=== PATIENT | female | born 1995 | race Caucasian/White ===

== ENCOUNTER 2019-03-11 08:59 | Inpatient (IN) ==
[2019-03-12] MEDS ORDERED: OXYTOCIN 30 UNITS/500 ML BAG IV PRN ×2 (08:39→08:43)
[2019-03-12 09:12] LABS: Hematocrit (blood only) 36.1 % (37-47); Hemoglobin 12.4 g/dL (12.0-16.0); Mean Corpuscular Hemoglobin 29.5 pg (25-34); Platelet Count 187 K/uL (130-400); RDW Standard Deviation 43.6 fL (36.4-46.3); White Blood Count 11.88 K/uL (4.8-10.8)
[2019-03-12 09:14] LABS: Mean Corpuscular Hgb Conc 34.3 g/dL (32-36)
--- NOTE | 2019-03-12 09:26 | History & Physical Report ---
Date of Service March 12, 2019 Assessment & Plan (1) : 24-year-old G1 @ 38 weeks 0 days here for induction of labor, 1) IOL - was previously breech but currently head down assessed via ultrasound this AM - continue to monitor position - Lisa placed one night prior, fell out - SVE: 3cm, soft, mid - no LOF, no bleeding - O+, Rubella immune, RPR NR, G/C none, GBS negative - plan: father would like to cut the cord, she would like to have an epidural 2) HTN - currently: 143/77 - taking Methyldopa - continue to monitor blood pressure - urine negative for protein - no headaches, vision changes, and RUQ pain 3) Fetus - good movement (2) Obesity during : (3) Hypertension: History of Present Illness Primary Care Provider: Self, Referred Ms. Foster is here for IOL. Lisa was placed last night and over the night it fell out along with a moderate amount of whitish clear mucus. There was not any fluid with the mucus, and there has not been any fluid from that point. She had some blood that was with the mucus but none after that. PMHx.: Anxiety, HTN - Patient was diagnosed with hypertension when she became , but stated that it was elevated prior to this. Taking Methyldopa. Surgical Hx.: Tonsillectomy, Adenoidectomy Social Hx.: lives with partner Caleb at home w/o any pets Pertinent family Hx.: no known complications with in her family, no known congenital anomalies Allergies Allergy/AdvReac Type Severity Reaction Status Date / Time diphenhydramine AdvReac Intermediate Shakiness Verified 03/11/19 14:06 [From Benadryl] Home Medications Home Medications Medication Instructions Recorded Confirmed Type buspirone 7.5 mg tablet 7.5 mg PO BID tab 01/01/19 03/12/19 History methyldopa 250 mg tablet 250 mg PO TID tab 01/01/19 03/12/19 History 1 tab PO DAILY 01/01/19 03/12/19 History vitamin,calcium,rddiwjzq-rwnn-jfskk acid tablet aspirin 81 mg PO QPM 01/15/19 03/12/19 History Patient History Social History Preferred Language: Lebanese Communication Ability: Effective Biology Internship Required: No Beliefs That Will Affect Care: None marital status: Current Living Situation: Spouse Other Information That Helps Us Care for You: No Feels Safe at Home: Yes Safety Concerns: Feels Safe At This Time Smoking Status: Never smoker Do You Dip or Chew Tobacco: No ; Second Hand Exposure: No ; Hx Alcohol Use: No Hx Substance Use: No Review of Systems Denies fever, chills, sweats Denies shortness of breath, difficulty breathing, chest pain, palpitations, chest pressure. Denies breast pain. Denies dysuria. Denies headache, vision changes, RUQ pain Physical Exam Physical Exam: General: Alert, oriented. No acute distress. Cardiac: Regular rate and rhythm, no murmurs/rubs/gallops. Respiratory: Clear to auscultation anterior and posteriorly, no wheezes/rales/rhonchi. No increased work of breathing. Symmetrical chest rise. No respiratory distress. Abdomen: Soft, nontender, nondistended. Bowel sounds present. Fetus: Vertex, head down Lower Extremities: No lower extremity edema or swelling. No deep calf pain. Dae's negative bilaterally. Results & Data Vital Signs (Past 12 Hours) Vital Signs Temp Pulse Resp BP 03/12/19 08:23 37.0 C 100 H 20 143/77 H 03/12/19 07:58 37.0 C 20 03/12/19 07:57 100 H 143/77 H H&H: 12.4 & 36.1 GBS: neg. Urine: neg. ECHO: structurally normal, mild R heart dilation, normal biventricular systolic function, no effusion RPR: NR G/C: neg Hep Bs Antigen: neg HIV: neg Rubella: immune Code Status & VTE Plan Code Status Full Monitoring External Monitor - normal FHT - no late decelerations present and no variable decelerations - Category 1 Tocodynamometer - no contractions present Supervising Physician Co-Signing Physician Notes Resident Physician Supervision Note: I interviewed and examined the patient. Discussed with Dr. Drew and agree with findings and plan as documented in the note. Any exceptions or clarifications are listed here: IOL, pitocin, ok for epidural when she desires. Documented By: Carrol Ellis DO Resident Activity Tracking Resident Involvement: Resident Care Provided Care Provided: Adult [facility]
[2019-03-12 09:32] LABS: Albumin Level 2.5 gm/dl (3.4-5.0); Calcium 8.8 mg/dl (8.5-10.1); Creatinine Clr Calc Pharmacy 146.5 ml/min; Est GFR (Non-African American) 124.3; Potassium 3.6 mmol/L (3.5-5.1)
[2019-03-12 09:35] LABS: Albumin Globulin Ratio 0.7 (0.9-2); Bilirubin,Total 0.3 mg/dl (0.2-1); Globulin 3.7 gm/dl (2.5-4.0); Total Protein 6.2 gm/dl (6.4-8.2)
[2019-03-12] MEDS: LACTATED RINGER'S 1,000 ML IV PRN ×3 (09:55→21:53)
--- NOTE | 2019-03-12 20:09 | Obstetrical Progress Note ---
Date of Service March 12, 2019 Subjective Comfortable with contractions, does not desire epidural at this time. FHT Cat 1 [place] Q 2 SVE 4/50/-2 AROM for clear fluid. IUPC placed. Results & Data Vital Signs (Past 12 Hours) Vital Signs Temp Pulse Resp BP 03/12/19 19:11 101 H 140/75 03/12/19 19:05 37.2 C 106 H 16 140/77 03/12/19 18:11 100 H 134/69 03/12/19 17:12 104 H 127/74 03/12/19 16:12 101 H 138/72 03/12/19 15:11 95 H 145/73 H 03/12/19 14:11 36.9 C 93 H 20 143/76 H 03/12/19 13:12 95 H 20 137/78 03/12/19 12:12 100 H 20 136/71 03/12/19 11:33 36.9 C 20 03/12/19 11:01 95 H 125/70 03/12/19 10:46 96 H 20 120/66 03/12/19 10:41 100 H 124/74 03/12/19 10:31 100 H 22 124/74 03/12/19 10:16 93 H 126/64 03/12/19 10:14 99 H 129/63 03/12/19 10:01 99 H 170/86 H 03/12/19 08:23 37.0 C 100 H 20 143/77 H PG Care Time/CCT Total # of Minutes Spent Total Time Spent with Patient: Total time spent is greater than 50% in coordination of care (as documented) at patient's floor/unit and/or counseling patient:
[2019-03-12] MEDS: METHYLDOPA 250 MG TAB PO SCH (21:08)
[2019-03-12] MEDS ORDERED: ePHEDrine sulfate 50 MG/ML AMP ONE (21:21)
[2019-03-12] MEDS ORDERED: BUPIVACAINE 0.25% 30 ML VIAL ONE (21:21)
[2019-03-12] MEDS ORDERED: fentaNYL citrate 100 MCG/2 ML VIAL ONE (21:22)
[2019-03-12] MEDS ORDERED: fentaNYL 2MCG/ML ROPIV 1.25MG/ML 100 ML BAG EPI ONE (21:22)
[2019-03-12] MEDS ORDERED: NALBUPHINE HCL INJ 10 MG/ML AMP IV PRN (22:29)
[2019-03-12] MEDS ORDERED: NALOXONE HCL 1 MG in SODIUM CHLORIDE 0.9% 1000ML 1,000 ML IV PRN (22:29)
[2019-03-12] MEDS ORDERED: DiphenhydrAMINE HCL 50 MG/ML VIAL IV PRN (22:29)
[2019-03-12] MEDS ORDERED: PROMETHAZINE HCL 25 MG in SODIUM CHLORIDE 0.9% 50 ML IV PRN (22:29)
[2019-03-12] MEDS ORDERED: ePHEDrine sulfate 50 MG/ML AMP IV PRN (22:29)
[2019-03-12] MEDS ORDERED: fentaNYL 2MCG/ML ROPIV 1.25MG/ML 100 ML BAG EPI PRN (22:29)
[2019-03-12] MEDS ORDERED: NALOXONE HCL 0.4 MG/1 ML VIAL/CARP IV PRN (22:29)
[2019-03-12] MEDS ORDERED: ONDANSETRON INJ 2 MG/ML 2 ML VIAL IV PRN (22:29)
--- NOTE | 2019-03-12 22:29 | Anesthesiology Consultation ---
Date of Service March 12, 2019 Assessment & Plan Chart Review Chart Review: Acceptable Risk for Surgery, Patient NOT seen in Pre Admission Testing and Acceptable Risk for Labor Epidural Consults Requested none ASA ASA3 Proposed Anesthesia Anesthesia Type: Labor Epidural Risk / Benefits Reviewed With: PT / POA / Parent / Guardian, Accepts Plan and In formed Consent Obtained History Height/Weight Height: 4 ft 10 in Weight: 112.491 kg Allergies Allergy/AdvReac Type Severity Reaction Status Date / Time diphenhydramine AdvReac Intermediate Shakiness Verified 03/11/19 14:06 [From [place]] Medications Home Medications Medication Instructions Recorded Confirmed Last Taken buspirone 7.5 mg tablet 7.5 mg PO BID tab 01/01/19 03/12/19 03/11/19 23:00 methyldopa 250 mg tablet 250 mg PO TID tab 01/01/19 03/12/19 03/11/19 23:00 1 tab PO DAILY 01/01/19 03/12/19 03/11/19 08:00 vitamin,calcium,lcbtblja-bamh-ddhvy acid tablet aspirin 81 mg PO QPM 01/15/19 03/12/19 03/11/19 23:00 Active Medications Generic Name Dose Route Start Last Admin Trade Name Freq PRN Reason Stop Dose Admin Lactated Ringer's 1,000 mls @ 125 mls/hr 03/12/19 08:39 03/12/19 21:53 Lr IV 03/14/19 08:38 125 mls/hr .Q8H PRN Administration L&D Protocol Protocol Oxytocin 30 units in 500 mls @ 10 mls/hr 03/12/19 08:43 03/12/19 21:46 Pitocin IV 03/14/19 08:42 0.6 units/hr .Q24H PRN 10 mls/hr Labor Induction/Augmentation Titration Protocol 0.6 UNITS/HR Methyldopa 250 mg 03/12/19 21:00 03/12/19 21:08 Aldomet PO 04/11/19 20:59 250 mg TID BATSHEVA Administration NPO Date Last Intake of Fluids: 03/12/19 Time Last Intake of Fluids: 18:00 Date Last Intake of Solids: 03/12/19 Time Last Intake of Solids: 10:30 Past Medical History Medical History Anxiety with depression History of chronic constipation History of varicella Hypertension Exercise / Class Metabolic Activity III < 4 Walking/Shop/Light housework Past Family History Family History Mother Hypertension Father Hypertension Other Diabetes Past Surgical History Surgical History History of tonsillectomy and adenoidectomy Past Anesthesia History No Hx of Anesthesia Complications and No Family Hx of Anesthesia Complications History of PONV No Hx of PONV and No Hx of Motion Sickness Social History Smoking Status: Never smoker Do You Dip or Chew Tobacco: No Hx Alcohol Use: No Hx Substance Use: No substance use type: does not use Physical Exam Vital Signs Last Vital Signs Temp 36.9 C 03/12/19 21:34 Pulse 74 03/12/19 22:25 Resp 16 03/12/19 22:16 BP 96/51 L 03/12/19 22:25 Pulse Ox 98 03/12/19 22:24 Constitutional + morbidly obese ENMT Mouth: + small oral opening; no dentition abnormality Thyromental Distance: < 3.5 Finger Breadths Mallampati Class: III Neck normal visual inspection, trachea midline, + short neck and + thick neck; neck extension not limited Respiratory normal respiratory effort Auscultation: lungs clear to auscultation bilaterally Cardiovascular Rate/Rhythm: regular rate and regular rhythm Heart Sounds: no murmur Musculoskeletal Spine: normal cervical ROM and + lumbar spine abnormal to inspection Neurologic moves all extremities Motor/Sensory: no sensory deficit Psychiatric Orientation: alert and oriented x 3 Testing Laboratory Results 03/12/19 09:01 03/12/19 09:01
--- NOTE | 2019-03-13 03:27 | Obstetrical Progress Note ---
Date of Service March 13, 2019 Subjective Patient sleeping in room. Not feeling ctx. FHT Cat 1 toco Q 2 min [address] is in [address]; MVU range between 150-200. SVE 4-5/70/-2 to -3 Results & Data Vital Signs (Past 12 Hours) Vital Signs Temp Pulse Resp BP Pulse Ox 03/13/19 03:19 95 H 99 03/13/19 03:14 117 H 125/60 99 03/13/19 03:09 105 H 98 03/13/19 03:04 96 H 98 03/13/19 02:59 96 H 100 03/13/19 02:58 96 H 129/71 03/13/19 02:54 95 H 99 03/13/19 02:49 96 H 100 03/13/19 02:47 36.9 C 18 03/13/19 02:44 83 97 03/13/19 02:42 89 108/55 L 03/13/19 02:39 78 96 03/13/19 02:34 75 96 03/13/19 02:29 80 16 110/52 L 97 03/13/19 02:24 83 96 03/13/19 02:19 73 96 03/13/19 02:14 76 97 03/13/19 02:12 88 110/55 L 03/13/19 02:09 81 96 03/13/19 02:04 84 97 03/13/19 01:59 97 H 99 03/13/19 01:58 80 105/63 03/13/19 01:54 81 96 03/13/19 01:49 76 97 03/13/19 01:44 103 H 97 03/13/19 01:43 92 H 16 104/53 L 03/13/19 01:39 83 97 03/13/19 01:34 79 97 03/13/19 01:29 77 97 03/13/19 01:27 91 H 116/58 L 03/13/19 01:24 85 96 03/13/19 01:19 72 96 03/13/19 01:14 84 97 03/13/19 01:12 92 H 114/57 L 03/13/19 01:09 94 H 99 03/13/19 01:04 97 H 98 03/13/19 01:00 37.0 C 16 03/13/19 00:59 86 97 03/13/19 00:58 87 112/55 L 03/13/19 00:54 77 96 03/13/19 00:49 94 H 97 03/13/19 00:44 82 96 03/13/19 00:42 95 H 103/55 L 03/13/19 00:39 79 96 03/13/19 00:34 80 97 03/13/19 00:29 84 96 03/13/19 00:28 90 102/52 L 03/13/19 00:24 75 95 03/13/19 00:19 85 97 03/13/19 00:16 79 94 03/13/19 00:14 85 104/53 L 95 03/13/19 00:09 83 95 03/13/19 00:04 79 94 03/12/19 23:59 83 95 03/12/19 23:58 88 113/52 L 03/12/19 23:54 86 95 03/12/19 23:49 84 95 03/12/19 23:44 82 95 03/12/19 23:43 84 103/53 L 03/12/19 23:39 79 96 03/12/19 23:34 82 96 03/12/19 23:29 83 97 03/12/19 23:28 93 H 16 117/58 L 03/12/19 23:24 80 99 03/12/19 23:19 81 99 03/12/19 23:14 83 16 116/56 L 99 03/12/19 23:09 97 H 100 03/12/19 23:07 36.8 C 16 03/12/19 23:04 98 H 100 03/12/19 23:00 104 H 133/95 03/12/19 22:59 103 H 100 03/12/19 22:56 106 H 18 137/83 03/12/19 22:54 92 H 99 03/12/19 22:52 93 H 120/58 L 03/12/19 22:49 95 H 116/53 L 100 03/12/19 22:46 79 115/57 L 03/12/19 22:44 103 H 100 03/12/19 22:43 102 H 140/82 03/12/19 22:40 87 16 114/57 L 03/12/19 22:39 85 100 03/12/19 22:38 106 H 92 03/12/19 22:37 104 H 16 106/58 L 03/12/19 22:34 96 H 16 107/57 L 100 03/12/19 22:31 86 16 105/59 L 03/12/19 22:29 95 H 98 03/12/19 22:28 88 16 102/54 L 03/12/19 22:25 74 96/51 L 03/12/19 22:24 84 98 03/12/19 22:22 97 H 102/53 L 03/12/19 22:19 100 H 104/54 L 99 03/12/19 22:16 101 H 16 110/58 L 03/12/19 22:14 119 H 97 03/12/19 22:12 110 H 132/77 03/12/19 22:09 106 H 98 03/12/19 22:04 110 H 100 03/12/19 21:59 115 H 98 03/12/19 21:54 112 H 96 03/12/19 21:49 109 H 97 03/12/19 21:44 107 H 97 03/12/19 21:39 106 H 98 03/12/19 21:34 36.9 C 107 H 18 97 03/12/19 21:29 106 H 98 03/12/19 21:24 109 H 98 03/12/19 21:12 107 H 135/69 03/12/19 20:13 91 H 134/61 03/12/19 20:07 37.2 C 18 03/12/19 19:11 101 H 140/75 03/12/19 19:05 37.2 C 106 H 16 140/77 03/12/19 18:11 100 H 134/69 03/12/19 17:12 104 H 127/74 03/12/19 16:12 101 H 138/72 PG Care Time/CCT Total # of Minutes Spent Total Time Spent with Patient: Total time spent is greater than 50% in coordination of care (as documented) at patient's floor/unit and/or counseling patient:
[2019-03-13] MEDS: LACTATED RINGER'S 1,000 ML IV PRN ×2 (04:48→09:00)
--- NOTE | 2019-03-13 07:36 | Labor Progress Brief Note ---
Date of Service March 13, 2019 Subjective comfortable Assessment & Plan (1) Obesity during : (2) Chronic hypertension affecting : Long discussion about options. Pateint has made NO change since 6pm last night when I was here. ruptured for about 12 hours. However, MVUS are not adequate. Baby very high. Patient not 5 foot tall. Concern for cpd. discussed pro/cons of options of proceeding with increasing pit to get more consistently adequate contractions or proceeding with c/s. They are considering options. IN meantime, will increase pit max to 30. Physical Exam Constitutional: WD/WN, vitals as above Psychiatric: A+Ox3, euthymic affect Genitourinary: cx--4 (at most)/75/-3 toco--q 2-3min, pit at 20, mvus have rarely been above 200 efm--135 with mod variability, accels to 150s, no decels Results & Data Vital Signs (Past 12 Hours) Vital Signs Temp Pulse Resp BP Pulse Ox 03/13/19 07:29 101 H 100 03/13/19 07:27 104 H 139/67 03/13/19 07:26 102 H 92 03/13/19 07:24 93 H 100 03/13/19 07:22 37.0 C 20 03/13/19 07:19 98 H 98 03/13/19 07:14 93 H 97 03/13/19 07:12 96 H 139/75 03/13/19 07:09 93 H 97 03/13/19 07:04 93 H 97 03/13/19 06:59 96 H 98 03/13/19 06:58 98 H 137/68 03/13/19 06:54 91 H 98 03/13/19 06:49 97 H 98 03/13/19 06:44 93 H 122/65 97 03/13/19 06:39 96 H 97 03/13/19 06:34 94 H 99 03/13/19 06:29 93 H 98 03/13/19 06:28 96 H 125/58 L 03/13/19 06:24 92 H 97 03/13/19 06:19 98 H 97 03/13/19 06:18 37.0 C 18 03/13/19 06:14 97 H 99 03/13/19 06:13 88 136/61 03/13/19 06:09 96 H 98 03/13/19 06:04 101 H 98 03/13/19 05:59 88 97 03/13/19 05:58 95 H 130/61 03/13/19 05:54 82 96 03/13/19 05:49 88 96 03/13/19 05:44 91 H 96 03/13/19 05:43 103 H 124/58 L 03/13/19 05:39 88 96 03/13/19 05:34 95 H 97 03/13/19 05:30 93 H 119/58 L 03/13/19 05:29 95 H 98 03/13/19 05:24 89 97 03/13/19 05:19 86 97 03/13/19 05:14 87 97 03/13/19 05:12 94 H 124/60 03/13/19 05:09 88 97 03/13/19 05:04 87 99 03/13/19 04:59 88 99 03/13/19 04:58 89 16 129/59 L 03/13/19 04:54 85 99 03/13/19 04:49 97 H 99 03/13/19 04:48 36.8 C 16 03/13/19 04:44 95 H 100 03/13/19 04:43 92 H 119/64 03/13/19 04:41 94 H 93 03/13/19 04:39 86 99 03/13/19 04:34 94 H 99 03/13/19 04:29 91 H 97 03/13/19 04:28 93 H 20 135/70 03/13/19 04:24 90 95 03/13/19 04:19 93 H 95 03/13/19 04:14 80 96 03/13/19 04:13 94 H 135/67 03/13/19 04:09 90 94 03/13/19 04:04 92 H 96 03/13/19 03:59 93 H 96 03/13/19 03:57 95 H 16 130/66 03/13/19 03:54 93 H 96 03/13/19 03:49 90 98 03/13/19 03:44 93 H 121/66 98 03/13/19 03:39 101 H 96 03/13/19 03:34 95 H 97 03/13/19 03:29 107 H 98 03/13/19 03:27 99 H 122/58 L 03/13/19 03:24 97 H 97 03/13/19 03:19 95 H 99 03/13/19 03:14 117 H 125/60 99 03/13/19 03:09 105 H 98 03/13/19 03:04 96 H 98 03/13/19 02:59 96 H 100 03/13/19 02:58 96 H 129/71 03/13/19 02:54 95 H 99 03/13/19 02:49 96 H 100 03/13/19 02:47 36.9 C 18 03/13/19 02:44 83 97 03/13/19 02:42 89 108/55 L 03/13/19 02:39 78 96 03/13/19 02:34 75 96 03/13/19 02:29 80 16 110/52 L 97 03/13/19 02:24 83 96 03/13/19 02:19 73 96 03/13/19 02:14 76 97 03/13/19 02:12 88 110/55 L 03/13/19 02:09 81 96 03/13/19 02:04 84 97 03/13/19 01:59 97 H 99 03/13/19 01:58 80 105/63 03/13/19 01:54 81 96 03/13/19 01:49 76 97 03/13/19 01:44 103 H 97 03/13/19 01:43 92 H 16 104/53 L 03/13/19 01:39 83 97 03/13/19 01:34 79 97 03/13/19 01:29 77 97 03/13/19 01:27 91 H 116/58 L 03/13/19 01:24 85 96 03/13/19 01:19 72 96 03/13/19 01:14 84 97 03/13/19 01:12 92 H 114/57 L 03/13/19 01:09 94 H 99 03/13/19 01:04 97 H 98 03/13/19 01:00 37.0 C 16 03/13/19 00:59 86 97 03/13/19 00:58 87 112/55 L 03/13/19 00:54 77 96 03/13/19 00:49 94 H 97 03/13/19 00:44 82 96 03/13/19 00:42 95 H 103/55 L 03/13/19 00:39 79 96 03/13/19 00:34 80 97 03/13/19 00:29 84 96 03/13/19 00:28 90 102/52 L 03/13/19 00:24 75 95 03/13/19 00:19 85 97 03/13/19 00:16 79 94 03/13/19 00:14 85 104/53 L 95 03/13/19 00:09 83 95 03/13/19 00:04 79 94 03/12/19 23:59 83 95 03/12/19 23:58 88 113/52 L 03/12/19 23:54 86 95 03/12/19 23:49 84 95 03/12/19 23:44 82 95 03/12/19 23:43 84 103/53 L 03/12/19 23:39 79 96 03/12/19 23:34 82 96 03/12/19 23:29 83 97 03/12/19 23:28 93 H 16 117/58 L 03/12/19 23:24 80 99 03/12/19 23:19 81 99 03/12/19 23:14 83 16 116/56 L 99 03/12/19 23:09 97 H 100 03/12/19 23:07 36.8 C 16 03/12/19 23:04 98 H 100 03/12/19 23:00 104 H 133/95 03/12/19 22:59 103 H 100 03/12/19 22:56 106 H 18 137/83 03/12/19 22:54 92 H 99 03/12/19 22:52 93 H 120/58 L 03/12/19 22:49 95 H 116/53 L 100 03/12/19 22:46 79 115/57 L 03/12/19 22:44 103 H 100 03/12/19 22:43 102 H 140/82 03/12/19 22:40 87 16 114/57 L 03/12/19 22:39 85 100 03/12/19 22:38 106 H 92 03/12/19 22:37 104 H 16 106/58 L 03/12/19 22:34 96 H 16 107/57 L 100 03/12/19 22:31 86 16 105/59 L 03/12/19 22:29 95 H 98 03/12/19 22:28 88 16 102/54 L 03/12/19 22:25 74 96/51 L 03/12/19 22:24 84 98 03/12/19 22:22 97 H 102/53 L 03/12/19 22:19 100 H 104/54 L 99 03/12/19 22:16 101 H 16 110/58 L 03/12/19 22:14 119 H 97 03/12/19 22:12 110 H 132/77 03/12/19 22:09 106 H 98 03/12/19 22:04 110 H 100 03/12/19 21:59 115 H 98 03/12/19 21:54 112 H 96 03/12/19 21:49 109 H 97 03/12/19 21:44 107 H 97 03/12/19 21:39 106 H 98 03/12/19 21:34 36.9 C 107 H 18 97 03/12/19 21:29 106 H 98 03/12/19 21:24 109 H 98 03/12/19 21:12 107 H 135/69 03/12/19 20:13 91 H 134/61 03/12/19 20:07 37.2 C 18
[2019-03-13] MEDS: METHYLDOPA 250 MG TAB PO SCH ×3 (08:29→21:16)
--- NOTE | 2019-03-13 08:59 | Communication Note ---
Date of Service: March 13, 2019 Again discussed the r/b/se of continued pitocin augmentation to get better MVUS and hope for vaginal delivery or proceeding with c/s. I advised that I could not say for sure about whether or not we could achieve a vaginal delivery and that I really don't have consistently adequate contractions so have not maximized all options. However, very concerned about her small pelvis and baby being so high at this point. concernd for cpd. Patient desires to proceed with c/s. Is concerned that the baby might get stuck and not be able to come out. this is a legitimate concern. r/b/se of c/s discussed with the patient. consent reviewed and signed. will proceed.
[2019-03-13] MEDS ORDERED: OXYTOCIN 10 UNITS/ML VIAL ONE ×3 (09:44→11:16)
[2019-03-13] MEDS ORDERED: LIDOCAINE/EPINEPHRINE 2% 1:200,000 20 ML SDV ONE (09:44)
[2019-03-13] MEDS ORDERED: CEFAZOLIN 3000MG 65 ML IV SCH (09:45)
[2019-03-13] MEDS ORDERED: CITRIC ACID/SODIUM CITRATE 15 ML UDC PO SCH (09:45)
[2019-03-13] MEDS ORDERED: MoRPHine SULFATE PF 1 MG/ML 10 ML AMP/VIAL ONE (09:46)
--- NOTE | 2019-03-13 09:46 | Anesthesiology Consultation ---
Date of Service March 13, 2019 Assessment & Plan (1) Encounter for pre-operative examination: Chart Review Chart Review: Acceptable Risk for Surgery Consults Requested none ASA ASA3 Proposed Anesthesia Anesthesia Type: Labor Epidural Risk / Benefits Reviewed With: PT / POA / Parent / Guardian, Accepts Plan and Informed Consent Obtained History Surgery Operation Date: 03/13/19 08:55 Proposed Procedures p Section in LD(Bilateral) - Kalyani Galarza MD, FACOG Height/Weight Height: 4 ft 10 in Weight: 112.491 kg Allergies Allergy/AdvReac Type Severity Reaction Status Date / Time diphenhydramine AdvReac Intermediate Shakiness Verified 03/11/19 14:06 [From Juliojose a] Medications Home Medications Medication Instructions Recorded Confirmed Last Taken buspirone 7.5 mg tablet 7.5 mg PO BID tab 01/01/19 03/12/19 03/11/19 23:00 methyldopa 250 mg tablet 250 mg PO TID tab 01/01/19 03/12/19 03/11/19 23:00 1 tab PO DAILY 01/01/19 03/12/19 03/11/19 08:00 vitamin,calcium,xtxawbrf-xnob-tuisg acid tablet aspirin 81 mg PO QPM 01/15/19 03/12/19 03/11/19 23:00 Active Medications Generic Name Dose Route Start Last Admin Trade Name Freq PRN Reason Stop Dose Admin Citric Acid/Sodium Citrate 30 ml 03/13/19 09:45 03/13/19 09:44 Bicitra PO 03/13/19 12:15 30 ml PREOP@0945 BATSHEVA Administration Lactated Ringer's 1,000 mls @ 125 mls/hr 03/12/19 08:39 03/13/19 09:00 Lr IV 03/14/19 08:38 999 mls/hr .Q8H PRN Administration L&D Protocol Protocol Oxytocin 30 units in 500 mls @ 0 mls/hr 03/12/19 08:43 03/13/19 08:28 Pitocin IV 03/14/19 08:42 0 units/hr .Q0M PRN 0 mls/hr Labor Induction/Augmentation Titration Protocol 0 UNITS/HR Methyldopa 250 mg 03/12/19 21:00 03/13/19 08:29 Ald[place] PO 04/11/19 20:59 250 mg TID BATSHEVA Administration Ropivacaine 100 ml 03/12/19 22:29 03/13/19 06:48 Epidural (L&D) EPI 03/13/19 22:28 100 ml PRN PRN Administration Pain R/T Labor Protocol NPO Date Last Intake of Fluids: 03/13/19 Time Last Intake of Fluids: 08:00 Date Last Intake of Solids: 03/12/19 Time Last Intake of Solids: 07:00 Past Medical History Medical History Anxiety with depression History of chronic constipation History of varicella Hypertension Exercise / Class Metabolic Activity II 4-5 Yardwork/Stairs/Walk up hill Past Family History Family History Mother Hypertension Father Hypertension Other Diabetes Past Surgical History Surgical History History of tonsillectomy and adenoidectomy Past Anesthesia History No Hx of Anesthesia Complications and No Family Hx of Anesthesia Complications History of PONV No Hx of PONV and No Hx of Motion Sickness Social History Smoking Status: Never smoker Do You Dip or Chew Tobacco: No Hx Alcohol Use: No Hx Substance Use: No substance use type: does not use Physical Exam Vital Signs Last Vital Signs Temp 98.2 F 03/13/19 08:59 Pulse 97 H 03/13/19 09:42 Resp 20 03/13/19 09:01 BP 131/66 03/13/19 09:42 Pulse Ox 100 03/13/19 09:39 ENMT Mouth: no dentition abnormality Thyromental Distance: > or= 3.5 Finger Breadths Mallampati Class: II Neck normal visual inspection Respiratory normal respiratory effort Auscultation: lungs clear to auscultation bilaterally Cardiovascular Rate/Rhythm: regular rate and regular rhythm Testing Laboratory Results 03/12/19 09:01 03/12/19 09:01
[2019-03-13] MEDS ORDERED: CARBOPROST TROMETHAMINE 250 MCG/ML AMPUL ONE (10:24)
[2019-03-13] MEDS ORDERED: SENNA 8.6 MG TAB PO PRN (10:46)
[2019-03-13] MEDS ORDERED: HYDROCORTISONE ACETATE 25 MG SUPP PR PRN (10:46)
[2019-03-13] MEDS ORDERED: SUPERCREAM 0.870% 15 GM JAR EXT PRN (10:46)
[2019-03-13] MEDS ORDERED: MAGNESIUM HYDROXIDE SUSP 30 ML UDC PO PRN (10:46)
[2019-03-13] MEDS ORDERED: BENZOCAINE 20% AER SPR 82.5 GM CAN EXT PRN (10:46)
[2019-03-13] MEDS ORDERED: DIPHTHERIA/TETANUS/PERTUSSIS 0.5 ML SYR/VIAL IM ONE (10:46)
[2019-03-13] MEDS ORDERED: LACTATED RINGER'S 500 ML IV PRN (10:53)
[2019-03-13] MEDS ORDERED: KETOROLAC 30 MG/ML VIAL IV PRN (10:53)
[2019-03-13] MEDS ORDERED: MoRPHine SULFATE PF 1 MG/ML 10 ML AMP/VIAL INT SPINAL ONE (10:53)
[2019-03-13] MEDS ORDERED: NALOXONE HCL 1 MG in SODIUM CHLORIDE 0.9% 1000ML 1,000 ML IV PRN (10:53)
[2019-03-13] MEDS ORDERED: ePHEDrine sulfate 50 MG/ML AMP IV PRN (10:53)
[2019-03-13] MEDS ORDERED: MEPERIDINE HCL 25 MG/ML CARP IV PRN (10:53)
[2019-03-13] MEDS ORDERED: NALOXONE HCL 0.08 MG in SYRINGE 1.8 ML IV PRN (10:53)
[2019-03-13] MEDS ORDERED: DiphenhydrAMINE HCL 50 MG/ML VIAL IV PRN (10:53)
[2019-03-13] MEDS ORDERED: NALOXONE HCL 0.4 MG/1 ML VIAL/CARP IV PRN (10:53)
[2019-03-13] MEDS ORDERED: NALBUPHINE HCL INJ 10 MG/ML AMP IV PRN (10:53)
--- NOTE | 2019-03-13 10:55 | Post Operative Brief Note ---
PG Immediate Post Op with CF Date of Surgery March 13, 2019 Pre & Post Diagnosis Operation Date: 03/13/19 08:55 Pre-Op Diagnosis: Intrauterine at 38 weeks Failure to progress Failre to descend Post-Op Diagnosis: Same as preop Delivery of live female child at 1021 Procedure Operation Date: 03/13/19 08:55 Actual Procedures p primary low transverse Section in LD(Bilateral) - Kalyani Galarza MD, FACOG Surgeon Kalyani Galarza MD, FACOG Packing Floor Worker Dr. Cordoba and Dr. Drew Estimated Blood Loss 600 Findings Consistent with Post-Op Diagnosis Specimens Specimen Description: A: Placenta hold B: cord blood Drains Lisa Catheter (placed before surgery, in labor and delivery)
[2019-03-13] MEDS ORDERED: SODIUM CHLORIDE 0.9% 1000ML 1,000 ML IV SCH (11:00)
[2019-03-13] MEDS ORDERED: OXYTOCIN 30 UNITS in LACTATED RINGER'S 1,000 ML IV SCH (11:00)
[2019-03-13] MEDS ORDERED: NO NARCOTICS OR SEDATIVES SCH (11:00)
[2019-03-13] MEDS ORDERED: DC INTRASPINAL MORPHINE SCH (11:00)
[2019-03-13] MEDS ORDERED: OXYTOCIN 10 UNITS/ML VIAL IM ONE (11:37)
--- NOTE | 2019-03-13 11:42 | Anesthesiology Progress Note ---
Date of Service March 13, 2019 Anesthesia Post Procedure Vital Signs Vital Signs: Temp Pulse Resp BP Pulse Ox 03/13/19 11:36 112 H 151/65 H 98 03/13/19 11:31 119 H 99 03/13/19 11:26 110 H 160/60 H 98 03/13/19 11:21 104 H 99 03/13/19 11:20 105 H 93 03/13/19 11:16 109 H 171/74 H 99 03/13/19 11:11 108 H 99 03/13/19 11:09 105 H 164/90 H 03/13/19 11:06 109 H 98 03/13/19 09:44 101 H 100 03/13/19 09:42 97 H 131/66 03/13/19 09:39 100 H 100 03/13/19 09:34 100 H 100 03/13/19 09:30 20 03/13/19 09:29 103 H 100 03/13/19 09:27 103 H 129/61 03/13/19 09:24 99 H 99 03/13/19 09:19 99 H 99 03/13/19 09:14 102 H 100 03/13/19 09:12 98 H 131/64 03/13/19 09:09 98 H 98 03/13/19 09:04 98 H 99 03/13/19 09:01 20 03/13/19 08:59 98.2 F 96 H 134/65 98 03/13/19 08:54 100 H 97 03/13/19 08:49 100 H 98 03/13/19 08:44 103 H 100 03/13/19 08:43 98 H 146/66 H 03/13/19 08:39 100 H 100 03/13/19 08:34 101 H 100 03/13/19 08:30 20 03/13/19 08:29 102 H 100 03/13/19 08:28 94 H 131/69 03/13/19 08:24 97 H 98 03/13/19 08:19 94 H 99 03/13/19 08:14 95 H 133/60 98 03/13/19 08:09 101 H 100 03/13/19 08:04 95 H 99 03/13/19 08:01 20 03/13/19 07:59 97 H 99 03/13/19 07:58 97 H 136/69 03/13/19 07:54 94 H 99 03/13/19 07:49 102 H 98 03/13/19 07:44 100 H 133/68 100 03/13/19 07:39 107 H 99 03/13/19 07:37 117 H 91 03/13/19 07:34 95 H 100 03/13/19 07:31 20 03/13/19 07:29 101 H 100 03/13/19 07:27 104 H 139/67 03/13/19 07:26 102 H 92 03/13/19 07:24 93 H 100 03/13/19 07:22 98.6 F 20 03/13/19 07:19 98 H 98 03/13/19 07:14 93 H 97 03/13/19 07:12 96 H 139/75 03/13/19 07:09 93 H 97 03/13/19 07:04 93 H 97 03/13/19 06:59 96 H 98 03/13/19 06:58 98 H 137/68 03/13/19 06:54 91 H 98 03/13/19 06:49 97 H 98 03/13/19 06:44 93 H 122/65 97 03/13/19 06:39 96 H 97 03/13/19 06:34 94 H 99 03/13/19 06:29 93 H 98 03/13/19 06:28 96 H 125/58 L 03/13/19 06:24 92 H 97 03/13/19 06:19 98 H 97 03/13/19 06:18 98.6 F 18 03/13/19 06:14 97 H 99 03/13/19 06:13 88 136/61 03/13/19 06:09 96 H 98 03/13/19 06:04 101 H 98 03/13/19 05:59 88 97 03/13/19 05:58 95 H 130/61 03/13/19 05:54 82 96 03/13/19 05:49 88 96 03/13/19 05:44 91 H 96 03/13/19 05:43 103 H 124/58 L 03/13/19 05:39 88 96 03/13/19 05:34 95 H 97 03/13/19 05:30 93 H 119/58 L 03/13/19 05:29 95 H 98 03/13/19 05:24 89 97 03/13/19 05:19 86 97 03/13/19 05:14 87 97 03/13/19 05:12 94 H 124/60 03/13/19 05:09 88 97 03/13/19 05:04 87 99 03/13/19 04:59 88 99 03/13/19 04:58 89 16 129/59 L 03/13/19 04:54 85 99 03/13/19 04:49 97 H 99 03/13/19 04:48 98.2 F 16 03/13/19 04:44 95 H 100 03/13/19 04:43 92 H 119/64 03/13/19 04:41 94 H 93 03/13/19 04:39 86 99 03/13/19 04:34 94 H 99 03/13/19 04:29 91 H 97 03/13/19 04:28 93 H 20 135/70 03/13/19 04:24 90 95 03/13/19 04:19 93 H 95 03/13/19 04:14 80 96 03/13/19 04:13 94 H 135/67 03/13/19 04:09 90 94 03/13/19 04:04 92 H 96 03/13/19 03:59 93 H 96 03/13/19 03:57 95 H 16 130/66 03/13/19 03:54 93 H 96 03/13/19 03:49 90 98 03/13/19 03:44 93 H 121/66 98 03/13/19 03:39 101 H 96 03/13/19 03:34 95 H 97 03/13/19 03:29 107 H 98 03/13/19 03:27 99 H 122/58 L 03/13/19 03:24 97 H 97 03/13/19 03:19 95 H 99 03/13/19 03:14 117 H 125/60 99 03/13/19 03:09 105 H 98 03/13/19 03:04 96 H 98 03/13/19 02:59 96 H 100 03/13/19 02:58 96 H 129/71 03/13/19 02:54 95 H 99 03/13/19 02:49 96 H 100 03/13/19 02:47 98.4 F 18 03/13/19 02:44 83 97 03/13/19 02:42 89 108/55 L 03/13/19 02:39 78 96 03/13/19 02:34 75 96 03/13/19 02:29 80 16 110/52 L 97 03/13/19 02:24 83 96 03/13/19 02:19 73 96 03/13/19 02:14 76 97 03/13/19 02:12 88 110/55 L 03/13/19 02:09 81 96 03/13/19 02:04 84 97 03/13/19 01:59 97 H 99 03/13/19 01:58 80 105/63 03/13/19 01:54 81 96 03/13/19 01:49 76 97 03/13/19 01:44 103 H 97 03/13/19 01:43 92 H 16 104/53 L 03/13/19 01:39 83 97 03/13/19 01:34 79 97 03/13/19 01:29 77 97 03/13/19 01:27 91 H 116/58 L 03/13/19 01:24 85 96 03/13/19 01:19 72 96 03/13/19 01:14 84 97 03/13/19 01:12 92 H 114/57 L 03/13/19 01:09 94 H 99 03/13/19 01:04 97 H 98 03/13/19 01:00 98.6 F 16 03/13/19 00:59 86 97 03/13/19 00:58 87 112/55 L 03/13/19 00:54 77 96 03/13/19 00:49 94 H 97 03/13/19 00:44 82 96 03/13/19 00:42 95 H 103/55 L 03/13/19 00:39 79 96 03/13/19 00:34 80 97 03/13/19 00:29 84 96 03/13/19 00:28 90 102/52 L 03/13/19 00:24 75 95 03/13/19 00:19 85 97 03/13/19 00:16 79 94 03/13/19 00:14 85 104/53 L 95 03/13/19 00:09 83 95 03/13/19 00:04 79 94 03/12/19 23:59 83 95 03/12/19 23:58 88 113/52 L 03/12/19 23:54 86 95 03/12/19 23:49 84 95 03/12/19 23:44 82 95 03/12/19 23:43 84 103/53 L 03/12/19 23:39 79 96 03/12/19 23:34 82 96 03/12/19 23:29 83 97 03/12/19 23:28 93 H 16 117/58 L 03/12/19 23:24 80 99 03/12/19 23:19 81 99 03/12/19 23:14 83 16 116/56 L 99 03/12/19 23:09 97 H 100 03/12/19 23:07 98.2 F 16 03/12/19 23:04 98 H 100 03/12/19 23:00 104 H 133/95 03/12/19 22:59 103 H 100 03/12/19 22:56 106 H 18 137/83 03/12/19 22:54 92 H 99 03/12/19 22:52 93 H 120/58 L 03/12/19 22:49 95 H 116/53 L 100 03/12/19 22:46 79 115/57 L 03/12/19 22:44 103 H 100 03/12/19 22:43 102 H 140/82 03/12/19 22:40 87 16 114/57 L 03/12/19 22:39 85 100 03/12/19 22:38 106 H 92 03/12/19 22:37 104 H 16 106/58 L 03/12/19 22:34 96 H 16 107/57 L 100 03/12/19 22:31 86 16 105/59 L 03/12/19 22:29 95 H 98 03/12/19 22:28 88 16 102/54 L 03/12/19 22:25 74 96/51 L 03/12/19 22:24 84 98 03/12/19 22:22 97 H 102/53 L 03/12/19 22:19 100 H 104/54 L 99 03/12/19 22:16 101 H 16 110/58 L 03/12/19 22:14 119 H 97 03/12/19 22:12 110 H 132/77 03/12/19 22:09 106 H 98 03/12/19 22:04 110 H 100 03/12/19 21:59 115 H 98 03/12/19 21:54 112 H 96 03/12/19 21:49 109 H 97 03/12/19 21:44 107 H 97 03/12/19 21:39 106 H 98 03/12/19 21:34 98.4 F 107 H 18 97 03/12/19 21:29 106 H 98 03/12/19 21:24 109 H 98 03/12/19 21:12 107 H 135/69 03/12/19 20:13 91 H 134/61 03/12/19 20:07 99.0 F 18 03/12/19 19:11 101 H 140/75 03/12/19 19:05 99.0 F 106 H 16 140/77 03/12/19 18:11 100 H 134/69 03/12/19 17:12 104 H 127/74 03/12/19 16:12 101 H 138/72 03/12/19 15:11 95 H 145/73 H 03/12/19 14:11 98.4 F 93 H 20 143/76 H 03/12/19 13:12 95 H 20 137/78 03/12/19 12:12 100 H 20 136/71 Pain Intensity Bilateral Abdomen: Pain Intensity: 0 Lower Back: Pain Intensity: 4 Transfer of Care Handoff Completed per policy Notes Mental Status: alert / awake / arousable and participated in evaluation Nausea / Vomiting: adequately controlled Pain: adequately controlled Airway Patency, RR, SpO2: stable & adequate BP & HR: stable & adequate Hydration State: stable & adequate Neuraxial Anesthesia: was administered and sensory block is resolving Anesthetic Complications: no major complications apparent and Pt Satisfied with anesthetic care
--- NOTE | 2019-03-13 12:37 | Operative Report ---
DATE OF OPERATION: 03/13/2019 PREOPERATIVE DIAGNOSES: 1. Intrauterine at 38 and 1/7 weeks. 2. Failure to progress. 3. Failure to descend. POSTOPERATIVE DIAGNOSES: 1. Intrauterine at 38 and 1/7 weeks. 2. Failure to progress. 3. Failure to descend. PROCEDURE: Primary low transverse section. SURGEON: Kalyani Galarza MD. ASSISTANTS: Daisy Cordoba MD and Dr. Drew, PGY1. ANESTHESIA: Epidural. ESTIMATED BLOOD LOSS: 600 mL. FLUIDS: 1000 mL. URINE OUTPUT: Approximately 150 mL of concentrated yellow urine drained from the bladder at the end of the procedure. INDICATIONS: Kanika is a 1, para 0 who was admitted on the morning of 03/12 for an induction secondary to the treatment of her chronic hypertension. She underwent Pitocin augmentation, amniotomy and intrauterine pressure catheter. On the morning of the , the patient had been 4, 75 and -2 for well over 14 hours. The baby had not descended into the pelvis at all. Although MVs were not quite adequate, they were very close for most of the night. We discussed the pros and cons of continuing to push the Pitocin to get better contractions and my concern that we had CPD and would wedge the baby into pelvis making the delivery difficult versus just proceeding with section. The risks, benefits and side effects of all were discussed and they decided to proceed with section. FINDINGS: Normal uterus, tubes, and ovaries were noted bilaterally, delivered a viable female infant in cephalic presentation, occiput anterior. No nuchal cord. Apgars 9 and 9, clear fluid. COMPLICATIONS: None. DRAINS: Lisa. DISPOSITION: To recovery room in stable condition. DESCRIPTION OF PROCEDURE: The patient was taken to the operating room. She was identified verbally and by bracelet. She was transferred to the operating table and placed in a supine leftward tilt. A Lisa catheter had already been placed. Her epidural was dosed. She was prepped and draped in normal sterile fashion. Timeout was held, identifying correct patient, procedure, positioning, and equipment. She had also received correct preoperative antibiotics. There were no concerns. A high horizontal incision was made above the patient's pannus and this was taken down to the underlying layer of fascia with the knife. Bleeding was attended to with Bovie electrocautery. The knife incised the fascia in the midline and the fascia was taken out laterally with scissors. The superior edge of the fascial incision was grasped, elevated and the underlying layer of rectus muscle was taken off bluntly and with scissors. A bleeding vessel on the rectus muscle was attended to with a [id number] stitch of 3-0 Vicryl. The inferior edge of the fascial incision was then grasped, elevated and the underlying layer of rectus muscle was taken off bluntly and with scissors. The muscles were bluntly and sharply in the midline. The peritoneum was entered bluntly and taken superiorly and inferiorly sharply with good visualization of the bladder. The incision was stretched and Bala self-retaining retractor was placed into the incision. A bladder blade was then placed for further retraction inferiorly. The bladder flap was created by grasping the vesicouterine peritoneum with a snap entering with scissors and taken out laterally with scissors. The bladder flap was created digitally. The hysterotomy incision was scored with a knife. It was entered with a snap and it was stretched with the nut blanker operator's fingers. The nut blanker operator's hand was placed into the pelvis. The head was floating and grasped with the operators hand. It required a vacuum to deliver through the incision . The nose and mouth were bulb suctioned and then the rest of the was then delivered without difficulty using fundal pressure. The baby was immediately vigorous. The nose and mouth were bulb suctioned. The cord was clamped and cut. The was handed off to the waiting art critic for drying and attention. Cord blood and gases were obtained. The placenta was expressed from the uterus. The uterus was exteriorized and cleared of all clot and debris with moistened laparotomy sponges. The hysterotomy incision was identified with T clamps and it was reapproximated with 2 layers of 0 Vicryl, the first in a running locked layer, the second in an imbricating layer. The posterior cul-de-sac was then irrigated and cleared of all clot and debris. The hysterotomy incision was again inspected and found to be hemostatic. The uterus was re-anteriorized and the hysterotomy incision was again inspected and found to be hemostatic. The Bala self-retaining retractor was removed. The rectus muscles were reapproximated in the midline with 3-4 interrupted sutures of 0 Vicryl. The fascia was reapproximated in the midline starting at the edges and meeting in the middle with 0 Vicryl. The subcuticular tissue was reapproximated with 2 layers of horizontal mattress sutures of 2-0 plain gut suture. The skin was then closed with a subcuticular stitch of 4-0 Vicryl. All sponge, lap and needle counts were correct x2. The patient tolerated the procedure well and was taken to the recovery room in stable condition. I attest to the content of the Intraoperative Record and any orders documented therein. Any exceptions are noted below. BEBA
[2019-03-13] MEDS: SIMETHICONE 80 MG CHEW PO SCH ×3 (13:37→21:16)
[2019-03-13] MEDS ORDERED: miSOPROStoL 200 MCG TAB ONE (14:40)
[2019-03-13] MEDS ORDERED: LACTATED RINGER'S 1,000 ML IV SCH (19:30)
[2019-03-13] MEDS: DOCUSATE SODIUM 100 MG CAP PO SCH (21:16)
[2019-03-14] MEDS ORDERED: KETOROLAC 30 MG/ML VIAL IV PRN (04:53)
[2019-03-14] MEDS ORDERED: MEPERIDINE HCL 50 MG/ML CARP IV PRN (04:53)
[2019-03-14] MEDS ORDERED: DiphenhydrAMINE HCL 50 MG/ML VIAL IV PRN (04:53)
[2019-03-14] MEDS ORDERED: PROMETHAZINE HCL 25 MG in SODIUM CHLORIDE 0.9% 50 ML IV PRN (04:53)
[2019-03-14] MEDS ORDERED: ONDANSETRON INJ 2 MG/ML 2 ML VIAL IV PRN (04:53)
--- NOTE | 2019-03-14 06:29 | Obstetrical Progress Note ---
Date of Service March 14, 2019 Assessment & Plan (1) : 24-year-old G1 @ 38 weeks 0 days s/p C/S HTN - currently: 125/92 - taking Methyldopa - continue to monitor blood pressure - urine negative for protein - no headaches, vision changes, and RUQ pain POD#1 - GBS negative, Blood Type O+ - Feels well today. Eating well, voiding well, ambulating well. - Pain well controlled. - Routine postoperative care - After discharge will have [address] Galarza. Supervising Physician Co-Signing Physician Notes Resident Physician Supervision Note: I interviewed and examined the patient. Discussed with Dr. Drew and agree with findings and plan as documented in the note. Any exceptions or clarifications are listed here: Doing well. BPs controlled. Continue routine POD 1 activities. Documented By: Kalyani Galarza MD, FACOG Subjective Doing well this morning with no questions or concerns. She has 2/10 pain, eating a regular diet. Review of Systems Review of Systems: Denies fever, chills, sweats Denies shortness of breath, difficulty breathing, chest pain, palpitations, chest pressure. Denies breast pain. Denies dysuria. Denies headache, vision changes, RUQ pain Physical Exam Physical Exam: General: Alert, oriented. No acute distress. Cardiac: Regular rate and rhythm, no murmurs/rubs/gallops. Respiratory: Clear to auscultation anterior and posteriorly, no wheezes/rales/rhonchi. No increased work of breathing. Symmetrical chest rise. No respiratory distress. Abdomen: Soft, nontender, nondistended. Bowel sounds present. Uterus: Uterine fundus firm, palpable at the umbilicus. Lower Extremities: No lower extremity edema or swelling. No deep calf pain. Dae's negative bilaterally. Results & Data Vital Signs (Past 12 Hours) Vital Signs Temp Pulse Resp BP Pulse Ox 03/14/19 05:00 18 97 03/14/19 04:30 36.9 C 100 H 20 130/80 98 03/14/19 04:00 20 98 03/14/19 03:00 18 98 03/14/19 02:30 18 97 03/14/19 01:30 20 97 03/14/19 00:30 18 97 03/13/19 23:40 37.3 C 114 H 18 125/92 97 03/13/19 22:00 18 97 03/13/19 21:00 17 96 03/13/19 20:10 37.3 C 115 H 17 121/73 95 03/13/19 20:00 16 97 03/13/19 19:00 17 95 03/13/19 18:27 18 97 PG Care Time/CCT Total # of Minutes Spent Total Time Spent with Patient: Total time spent is greater than 50% in coordination of care (as documented) at patient's floor/unit and/or counseling patient: Resident Activity Tracking Resident Involvement: Resident Care Provided Care Provided: Adult Hospital Medicine
[2019-03-14 07:35] LABS: Basophils # (auto) 0.02 K/uL (0-0.2); Basophils % (auto) 0.2 %; Eosinophils # (auto) 0.08 K/uL (0-0.5); Eosinophils % (auto) 0.7 %; Hematocrit (blood only) 29.9 % (37-47); Hemoglobin 10.1 g/dL (12.0-16.0); Immature Granulocytes # (auto) 0.02 K/uL (0.00-0.02); Immature Granulocytes % (auto) 0.2 %; Lymphocytes # (auto) 1.18 K/uL (1.2-3.4); Lymphocytes % (auto) 9.8 %; Mean Corpuscular Hemoglobin 29.8 pg (25-34); Mean Corpuscular Hgb Conc 33.8 g/dL (32-36); Mean Corpuscular Volume 88.2 fL (80-100); Mean Platelet Volume 9.7 fL (7.4-10.4); Monocytes % (auto) 6.6 %; Neutrophils % (auto) 82.5 %; Platelet Count 133 K/uL (130-400); RDW Coefficient of Variation 14.3 % (11.5-14.5); RDW Standard Deviation 44.7 fL (36.4-46.3); Red Blood Count 3.39 M/uL (4.2-5.4)
[2019-03-14] MEDS: PRENATAL VITAMIN 1 TAB PO SCH (08:10)
[2019-03-14] MEDS: DOCUSATE SODIUM 100 MG CAP PO SCH ×2 (08:10→20:47)
[2019-03-14] MEDS: FERROUS SULFATE 325 MG TAB PO SCH (08:10)
[2019-03-14] MEDS: SIMETHICONE 80 MG CHEW PO SCH ×4 (08:10→20:48)
[2019-03-14] MEDS: METHYLDOPA 250 MG TAB PO SCH ×3 (08:11→20:50)
--- NOTE | 2019-03-14 09:05 | Anesthesiology Progress Note ---
Date of Service March 14, 2019 Anesthesia Post Procedure Vital Signs Vital Signs: Temp Pulse Pulse Resp BP BP Pulse Ox 03/14/19 08:00 98.2 F 105 H 20 106/67 96 03/14/19 05:00 18 97 03/14/19 04:30 98.4 F 100 H 20 130/80 98 03/14/19 04:00 20 98 03/14/19 03:00 18 98 03/14/19 02:30 18 97 03/14/19 01:30 20 97 03/14/19 00:30 18 97 03/13/19 23:40 99.1 F 114 H 18 125/92 97 03/13/19 22:00 18 97 03/13/19 21:00 17 96 03/13/19 20:10 99.1 F 115 H 17 121/73 95 03/13/19 20:00 16 97 03/13/19 19:00 17 95 03/13/19 18:27 18 97 03/13/19 17:30 18 96 03/13/19 16:30 18 97 03/13/19 14:30 18 96 03/13/19 14:15 99.3 F 96 H 20 115/73 96 03/13/19 14:13 108 H 90 03/13/19 14:11 106 H 93 03/13/19 14:06 100 H 111/55 L 95 03/13/19 14:01 97 H 93 03/13/19 13:56 100 H 110/58 L 95 03/13/19 13:51 100 H 94 03/13/19 13:46 107 H 103/55 L 93 03/13/19 13:41 100 H 94 03/13/19 13:36 106 H 109/53 L 94 03/13/19 13:31 101 H 95 03/13/19 13:26 104 H 116/59 L 95 03/13/19 13:21 100 H 92 03/13/19 13:16 104 H 115/58 L 92 03/13/19 13:11 103 H 94 03/13/19 13:07 97 H 20 115/58 L 03/13/19 13:06 111 H 121/58 L 94 03/13/19 13:01 108 H 94 03/13/19 12:56 106 H 120/65 96 03/13/19 12:51 108 H 95 03/13/19 12:49 106 H 91 03/13/19 12:46 107 H 121/59 L 94 03/13/19 12:41 108 H 93 03/13/19 12:37 20 03/13/19 12:36 112 H 124/66 95 03/13/19 12:31 108 H 95 03/13/19 12:26 102 H 124/62 95 03/13/19 12:21 105 H 96 03/13/19 12:16 101 H 119/56 L 95 03/13/19 12:11 112 H 96 03/13/19 12:07 20 03/13/19 12:06 100.0 F H 113 H 20 133/76 95 03/13/19 12:01 109 H 95 03/13/19 11:59 109 H 93 03/13/19 11:56 114 H 20 144/73 H 96 03/13/19 11:54 113 H 94 03/13/19 11:51 108 H 96 03/13/19 11:46 110 H 20 154/77 H 98 03/13/19 11:41 109 H 98 03/13/19 11:36 112 H 20 151/65 H 98 03/13/19 11:31 119 H 99 03/13/19 11:26 110 H 20 160/60 H 98 03/13/19 11:21 104 H 99 03/13/19 11:20 105 H 93 03/13/19 11:18 20 03/13/19 11:16 109 H 171/74 H 99 03/13/19 11:11 108 H 99 03/13/19 11:09 105 H 164/90 H 03/13/19 11:08 99.3 F 20 03/13/19 11:06 109 H 98 03/13/19 09:44 101 H 100 03/13/19 09:42 97 H 131/66 03/13/19 09:39 100 H 100 03/13/19 09:34 100 H 100 03/13/19 09:30 20 03/13/19 09:29 103 H 100 03/13/19 09:27 103 H 129/61 03/13/19 09:24 99 H 99 03/13/19 09:19 99 H 99 03/13/19 09:14 102 H 100 03/13/19 09:12 98 H 131/64 03/13/19 09:09 98 H 98 Pain Intensity Bilateral Abdomen: Pain Intensity: 1 Lower Back: Pain Intensity: 4 Transfer of Care Handoff Completed per policy Notes Mental Status: alert / awake / arousable and participated in evaluation Nausea / Vomiting: adequately controlled Pain: adequately controlled Airway Patency, RR, SpO2: stable & adequate BP & HR: stable & adequate Hydration State: stable & adequate Neuraxial Anesthesia: was administered and sensory block resolved Anesthetic Complications: no major complications apparent and Pt Satisfied with anesthetic care
[2019-03-14] MEDS: IBUPROFEN 600 MG TAB PO PRN ×3 (09:33→22:45)
[2019-03-14] MEDS: OXYCODONE/ACETAMINOPHEN 5mg/325mg TAB PO PRN ×3 (09:33→22:45)
[2019-03-14] MEDS ORDERED: bisacodyL 5 MG TABEC PO SCH (20:00)
[2019-03-15] MEDS: IBUPROFEN 600 MG TAB PO PRN ×5 (04:04→23:57)
[2019-03-15] MEDS: OXYCODONE/ACETAMINOPHEN 5mg/325mg TAB PO PRN ×5 (04:05→23:57)
[2019-03-15 06:41] LABS: Hematocrit (blood only) 28.5 % (37-47); Hemoglobin 9.4 g/dL (12.0-16.0)
--- NOTE | 2019-03-15 06:41 | Obstetrical Progress Note ---
Date of Service March 15, 2019 Assessment & Plan (1) : 24-year-old G1 @ 38 weeks 0 days s/p C/S HTN - currently: 113/ - taking Methyldopa - continue to monitor blood pressure - urine negative for protein - no headaches, vision changes, and RUQ pain POD#2 - GBS negative, Blood Type O+ - Feels well today. Eating well, voiding well, ambulating well. - Pain well controlled. - Routine postoperative care - After discharge will have [address] Galarza. Supervising Physician Co-Signing Physician Notes Resident Physician Supervision Note: I was present with Dr. Drew during the history and exam. I discussed the case with the resident and agree with the findings and plan as documented in the note. Any exceptions or clarifications are listed here: [None] Documented By: Daisy Guaman MD, FACOG Subjective Doing well this morning with no questions or concerns. She has 3/10 pain, eating a regular diet. Describes bleeding as "not much". Review of Systems Review of Systems: Denies fever, chills, sweats Denies shortness of breath, difficulty breathing, chest pain, palpitations, chest pressure. Denies breast pain. Denies dysuria. Denies headache, vision changes, RUQ pain Physical Exam Physical Exam: General: Alert, oriented. No acute distress. Cardiac: Regular rate and rhythm, no murmurs/rubs/gallops. Respiratory: Clear to auscultation anterior and posteriorly, no wheezes/rales/rhonchi. No increased work of breathing. Symmetrical chest rise. No respiratory distress. Abdomen: Soft, nontender, nondistended. Bowel sounds present. Uterus: Uterine fundus firm, palpable at the umbilicus. Lower Extremities: No lower extremity edema or swelling. No deep calf pain. Dae's negative bilaterally. Results & Data Vital Signs (Past 12 Hours) Vital Signs Temp Pulse Resp BP Pulse Ox 03/14/19 22:45 37.0 C 96 H 16 113/77 98 03/14/19 20:40 36.5 C 102 H 18 122/77 97 PG Care Time/CCT Total # of Minutes Spent Total Time Spent with Patient: Total time spent is greater than 50% in coordination of care (as documented) at patient's floor/unit and/or counseling patient: Resident Activity Tracking Resident Involvement: Resident Care Provided Care Provided: Adult [facility]
[2019-03-15] MEDS: METHYLDOPA 250 MG TAB PO SCH ×3 (08:32→19:59)
[2019-03-15] MEDS: FERROUS SULFATE 325 MG TAB PO SCH (08:33)
[2019-03-15] MEDS: DOCUSATE SODIUM 100 MG CAP PO SCH ×2 (08:33→19:57)
[2019-03-15] MEDS: PRENATAL VITAMIN 1 TAB PO SCH (08:34)
[2019-03-15] MEDS: BUSPIRONE HCL 7.5 MG TAB PO SCH ×2 (09:05→20:49)
[2019-03-15] MEDS: SIMETHICONE 80 MG CHEW PO SCH ×4 (09:05→19:58)
[2019-03-15] MEDS ORDERED: bisacodyL 10 MG SUPP PR PRN (10:46)
[2019-03-16] MEDS: IBUPROFEN 600 MG TAB PO PRN ×2 (05:02→10:37)
[2019-03-16] MEDS: OXYCODONE/ACETAMINOPHEN 5mg/325mg TAB PO PRN ×2 (05:03→10:37)
[2019-03-16] MEDS: FERROUS SULFATE 325 MG TAB PO SCH (08:44)
[2019-03-16] MEDS: PRENATAL VITAMIN 1 TAB PO SCH (08:44)
[2019-03-16] MEDS: BUSPIRONE HCL 7.5 MG TAB PO SCH (08:44)
[2019-03-16] MEDS: DOCUSATE SODIUM 100 MG CAP PO SCH (08:44)
[2019-03-16] MEDS: SIMETHICONE 80 MG CHEW PO SCH ×2 (08:44→12:25)
[2019-03-16] MEDS: METHYLDOPA 250 MG TAB PO SCH (08:45)
--- NOTE | 2019-03-16 09:00 | Obstetrical Progress Note ---
Date of Service March 16, 2019 Assessment & Plan (1) delivery delivered: (2) Chronic hypertension affecting : (3) Obesity during : stable for d/c home. she feels better and wants to go home if baby able to go. f/u 2wks with her psychiatrist re: mood and her medicine. f/u 6wks pp check. will need to see her pcp about her bp medicines by 4wks. instructions reviewed. . Day #:: 2 Subjective Ambulation: ambulating normally Voiding: no voiding problems Passing Gas:: Yes Diet Tolerance:: regular diet Lochia:: Small Feeding Type:: breast feeding pain control adequate. reports dizzy spell last night and then didn't want to go home and reports needed help with . she feels better today and ready to go home. when speaking to nursing, she had a mood episode last night and was not sleeping etc. she does have psychiatrist and will need to see them in upcoming weeks. Physical Exam Constitutional WD/WN, vitals as above Respiratory normal respiratory effort, lungs clear to auscultation Cardiovascular Rate/Rhythm: regular rate and regular rhythm Gastrointestinal (Abdomen) Inspection/Auscultation: abdomen normal to inspection and + abdominal surgical incision (incision c/d/i with steris) Percussion/Palpation: abdomen soft (obese); abdomen nontender fundus firm 2 cm below umbilicus Musculoskeletal nt calves tr edema Neurologic grossly normal Psychiatric A+Ox3, euthymic affect Results & Data Vital Signs (Past 12 Hours) Vital Signs Temp Pulse Resp BP Pulse Ox 03/16/19 07:35 97.9 F 95 H 16 119/83 99 03/16/19 02:35 89 128/80 03/15/19 23:50 97.5 F L 92 H 16 117/91 95
--- NOTE | 2019-03-17 22:32 | Discharge Summary ---
ADMIT DIAGNOSES: 1. at 38 and 0/7 weeks. 2. Induction of labor because of chronic hypertension, on methyldopa. DISCHARGE DIAGNOSES: 1. at 38 and 0/7 weeks. 2. Induction of labor because of chronic hypertension, on methyldopa. 3. Failure to progress. 4. Failure to descend. PROCEDURE: Primary low transverse section. HISTORY OF PRESENT ILLNESS: The patient is a 1, para 0 here for induction of labor at 38 weeks secondary to chronic hypertension. The Lisa had placed the night before and it had fallen out. There was no bleeding or leaking of fluid. PAST MEDICAL HISTORY: Significant for the hypertension as discussed above. For the rest of the patient's detailed history and physical, please see her dictated history and physical. ASSESSMENT: This is a G1, P0 at 38 weeks with chronic hypertension for induction of labor. HOSPITAL COURSE: The patient was admitted. She underwent Pitocin augmentation. She had rupture of membranes for clear fluid and an intrauterine pressure catheter placed and she was 4, 50 and -2. This was at approximately 8 o'clock. The patient made no further surgical change after that time. When I came in and took over for the patient in the following morning, I found her to be 4 cm dilated, 75%, -3, very high actually. She was lawson every 2-3 minutes with Pitocin at 20. The MVU's had been greater than 150, but rarely above 200. External monitor showed a category 1 fetus. At that point in time which was approximately 07:30, we had a very long conversation about the options. I did discuss that we had probably not maximized the Pitocin given her MVU's, greater than 200, but I was quite concerned that she had made no cervical change and in fact had had no descent since in the last 12 hours. I have concerns about CBD for this patient. We discussed the pros and cons and proceeding with increasing Pitocin to get more adequate contractions or proceeding with delivery. After thoroughly considering their options, they decided that they wanted to proceed with section. I did reiterate to them that I could not say for sure about whether or not we could achieve a vaginal delivery and that I really did not have consistently adequate contractions and so not all options had been maximized; however, I did reiterate my concern about the small pelvis and the baby being so high at that point. The patient desires to proceed with section. She is concerned that the baby might get stuck and not be able to come out, which I feel is a legitimate concern. The patient underwent a primary low transverse section without significant difficulty. ESTIMATED BLOOD LOSS: 600 mL. FINDINGS: Normal uterus, tubes, and ovaries were noted bilaterally. She delivered a viable female in cephalic presentation, occiput anterior. No nuchal cord. Apgars 9 and 9, clear fluid. The head was floating. The rest of the patient's hospital course was uncomplicated. She tolerated a regular diet, ambulated without difficulty, had her pain well controlled with oral pain medications. She was discharged home on postoperative day #2. She voided without difficulty after the removal of her Lisa catheter. She will follow up with her psychiatrist in 2 weeks and in 6 weeks for check. Additionally, she will follow up with her PCP about her blood pressure medications in 4 weeks. She was instructed to call if she had any concerns.
== END 2019-03-16 12:59 | disposition home or self-care (01) | DRG 787 ==
LOC: 4S1 03-12 07:42 → 4S2 03-13 14:28